=== PATIENT | male | born 1995 | race Caucasian/White ===

== ENCOUNTER 2023-12-11 16:00 | Outpatient (CLI) | payer BC | END 2023-12-11 16:01 | disposition home or self-care (01) | LOC: SLEEPLAB 16:00 | PROVIDERS: ATTEND Family Medicine | DX: G47.33 Obstructive sleep apnea (adult) (pediatric) (principal); G47.00 Insomnia, unspecified; F41.9 Anxiety disorder, unspecified; R53.83 Other fatigue; R40.0 Somnolence; R06.83 Snoring; E66.9 Obesity, unspecified; Z68.22 Body mass index [BMI] 22.0-22.9, adult | CPT/HCPCS: 95800 ==